=== PATIENT | male | born 1995 | race Caucasian/White ===

== ENCOUNTER 2018-01-05 04:16 | Emergency (ER) | payer BC ==
[2018-01-05] MEDS ORDERED: HYDROCODONE/APAP (10/325) TAB PO (05:00)
[2018-01-05] MEDS: LIDOCAINE 1%/EPI (MDV) 50 ML INJ INJ (05:30)
[2018-01-05] MEDS: DIPHTH/TET/ACEL PERTUSS (ADULT) 0.5 ML VIAL IM* (05:53)
[2018-01-05] MEDS: morphine 4 MG/ML VIAL IM (06:21)
[2018-01-05] MEDS: BACITRACIN 0.9 GM OINT TOP (07:18)
== END 2018-01-05 07:16 | disposition home or self-care (01) ==
LOC: FTE 07:16
DX: S51.812A Laceration without foreign body of left forearm, initial encounter (principal); W26.0XXA Contact with knife, initial encounter; Y92.9 Unspecified place or not applicable; Z23 Encounter for immunization
CPT/HCPCS: 12002; 73090; 90471; 90715; 96372; 99284-25